=== PATIENT | female | born 1955 | race Caucasian/White ===

== ENCOUNTER 2020-10-21 07:05 | Day surgery (SDC) | payer OTHER, SELFPAY ==
[~2020-10-21] VITALS: Ht 162.6 cm; Wt 108.9 kg
[~2020-10-21 07:05] MED LIST: CEFAZOLIN SOD 1 GM in D5W 50 ML IV ONE
[2020-10-21] MEDS ORDERED: MIDAZOLAM HCL 2 MG/2 ML VIAL (VERSED) IVP PRN (11:30)
[2020-10-21] MEDS ORDERED: LABETALOL 100 MG/ 20ML VIAL IVP PRN (11:30)
[2020-10-21] MEDS ORDERED: MEPERIDINE HCL/PF 25 MG/ML DISP.SYRIN IVP PRN (11:30)
[2020-10-21] MEDS ORDERED: HYDROmorphone 1 MG INJ. 1 MG/ML AMPUL IVP PRN ×3 (11:30→14:30)
[2020-10-21] MEDS ORDERED: LR 1,000 ML IV SCH (11:30)
[2020-10-21] MEDS ORDERED: ONDANSETRON HCL 4 MG/2 ML VIAL IVP PRN (11:30)
[2020-10-21] MEDS ORDERED: D5/0.45 NS 1,000 ML IV SCH (12:00)
[2020-10-21 13:10] VITALS: BP_SYST 124
[2020-10-21] MEDS ORDERED: HYDROcodone/ACETAMIN 5-325 MG TAB (NORCO/ VICODIN) ONE (13:37)
[2020-10-21] MEDS ORDERED: HYDROcodone/ACETAMIN 5-325 MG TAB (NORCO/ VICODIN) PO ONE ×2 (13:40→13:45)
[2020-10-21] MEDS ORDERED: HYDROcodone/ACETAMIN 5-325 MG TAB (NORCO/ VICODIN) PO PRN ×2 (14:30)
== END 2020-10-21 14:05 | disposition home or self-care (01) ==
LOC: SDS 07:05 → SMU 07:05 → EDSTATUS 08:35 → SDS 14:05
PROVIDERS: ATTEND Colon & Rectal Surgery
DX: C50.912 Malignant neoplasm of unspecified site of left female breast (principal); I10 Essential (primary) hypertension; E11.9 Type 2 diabetes mellitus without complications; K21.9 Gastro-esophageal reflux disease without esophagitis; M19.90 Unspecified osteoarthritis, unspecified site; E66.9 Obesity, unspecified; F33.41 Major depressive disorder, recurrent, in partial remission; E78.5 Hyperlipidemia, unspecified; N39.0 Urinary tract infection, site not specified; Z20.828 Contact with and (suspected) exposure to other viral communicable diseases
CPT/HCPCS: 19281; 19301; 88305; 88307; J0690; J7060; U0003